=== PATIENT | male | born 1975 | race Caucasian/White ===

== ENCOUNTER 2019-05-01 05:59 | Day surgery (SDC) | payer OTHER ==
[~2019-05-01] VITALS: Ht 177.8 cm; Wt 89.8 kg
[2019-05-01] VITALS (10 sets, daily range): BP systolic 119–150; BP diastolic 71–110
[~2019-05-01 05:59] MED LIST: NO HOME MEDS; cefazolin/dext.iso 2gm/100ml 100 ML IV ONE; famotidine 20mg tablet PO ONE; ringers solution, lacted 1,000 ML IV SCH
[2019-05-01] MEDS ORDERED: BUPIVAcaine/PF 2.5 mg/ml (0.25%) 30ml vial ONE (06:45)
[2019-05-01] MEDS ORDERED: LIDOcaine 1% 30ml preserv. free vial ONE (06:45)
[2019-05-01] MEDS ORDERED: LIDOcaine 1% (10mg/ml) 2ml vial ONE (06:45)
[2019-05-01 07:30] LABS: BASOPHILS % (AUTO) 0.7 % (0-1); EOSINOPHILS # (AUTO) 0.1 X10'3 (0-0.9); EOSINOPHILS % (AUTO) 1.7 % (0-6); LYMPHOCYTES # (AUTO) 1.3 X10'3 (1.1-4.8); LYMPHOCYTES % (AUTO) 21.1 % (21-51); MEAN CORPUSCULAR HEMOGLOBIN 28.7 PG (27.0-31.0); MEAN CORPUSCULAR HGB CONC 33.8 g/dL (33.0-36.5); MEAN PLATELET VOLUME 7.8 FL (7.4-10.4); MONOCYTES # (AUTO) 0.3 X10'3 (0-0.9); MONOCYTES % (AUTO) 4.7 % (2-12); NEUTROPHILS # (AUTO) 4.4 X10'3 (1.8-7.7); NEUTROPHILS % (AUTO) 71.8 % (42-75); PRE OP HEMATOCRIT 49.5 % (42.0-52.0); PRE OP HEMOGLOBIN 16.7 g/dL (14.0-17.9); PRE OP PLATELET COUNT 244 X10'3 (140-440); RED BLOOD COUNT 5.82 X10'6 (4.70-6.10); RED CELL DISTRIBUTION WIDTH 14.1 % (11.5-14.5)
[2019-05-01 07:38] LABS: ALBUMIN 4.5 G/DL (3.4-5.0); ALBUMIN/GLOBULIN RATIO 1.3 (1.1-1.5); ALKALINE PHOSPHATASE 78 IU/L (46-116); BLOOD UREA NITROGEN 17 MG/DL (7-18); CALCIUM 9.3 MG/DL (8.5-10.1); CHLORIDE 107 MMOL/L (99-107); CREATININE 1.13 MG/DL (0.60-1.10); PRE OP ALT 33 U/L (30-65); PRE OP ANION GAP 9 (8-16); PRE OP BILIRUB, TOTAL 0.5 MG/DL (0.0-1.0); PRE OP GLUCOSE 104 MG/DL (70-104); PRE OP SODIUM 144 MMOL/L (135-145); TOTAL CARBON DIOXIDE 28.1 MMOL/L (24-32); TOTAL PROTEIN 7.9 G/DL (6.4-8.2); eGFR 71 ML/MIN
[2019-05-01 07:40] LABS: PRE OP AST 28 U/L (10-37); PRE OP POTASSIUM 4.9 MMOL/L (3.4-5.1)
[2019-05-01] MEDS ORDERED: midazolam 2 mg/2 ml injection ONE (08:31)
[2019-05-01] MEDS ORDERED: fentaNYL/PF 50MCG/1 ML 2ML syringe ONE ×2 (08:31→09:13)
[2019-05-01] MEDS ORDERED: ringers solution, lacted 1,000 ML IV SCH (09:40)
[2019-05-01] MEDS ORDERED: proCHLORperazine 10 MG/2 ml inj IV PRN (09:40)
[2019-05-01] MEDS ORDERED: ondansetron/PF 4mg/2ml inj IV PRN (09:40)
[2019-05-01] MEDS ORDERED: meperidine/PF 25mg/ml syringe IV PRN ×3 (09:40)
[2019-05-01] MEDS ORDERED: morphine 4 MG/ML inj SYRINge IV PRN (09:40)
[2019-05-01] MEDS ORDERED: morphine 2 MG/ML inj. syringe IV PRN (09:40)
--- NOTE | 2019-05-01 10:21 | NUR ---
Received from OR via carolyn, accompanied by Anesthesiologist DR ROSAS and report given by Anesthesiologist. PT DROWSY, NO S/S OF DISTRESS/DISCOMFORT. ABDOMEN W/3 LAP SITES W/BANDAIDS CDI. Addendum: 05/01/19 at 1121 by Brianna Machado RN Amended: Links added.
[2019-05-01] MEDS ORDERED: labetalol 20mg/4ml (5mg/ml) syringe IV ONE (10:26)
[2019-05-01] MEDS ORDERED: rocuronium 10mg/ml inj IV ONE (10:56)
[2019-05-01] MEDS ORDERED: neostigmine methylsulfate 1 MG/ML 10ml vial ONE (10:56)
[2019-05-01] MEDS ORDERED: glycopyrrolate 0.2mg/ml inj ONE (10:56)
[2019-05-01] MEDS ORDERED: dexamethasone sod phosphate 4mg/ml inj. ONE (10:56)
[2019-05-01] MEDS ORDERED: ondansetron/PF 4mg/2ml inj ONE (10:56)
[2019-05-01] MEDS ORDERED: propofol inj 20 ML IV ONE (10:56)
[2019-05-01] MEDS ORDERED: LIDOcaine 2% (20mg/ml) 5ml vial ONE (10:56)
[2019-05-01] MEDS ORDERED: HYDROcodone/acetaminophen 10/325mg tab PO PRN (11:00)
[2019-05-01] MEDS ORDERED: HYDROcodone/acetaminophen 5mg/325mg tablet PO PRN (11:00)
--- NOTE | 2019-05-01 11:40 | NUR ---
RECEIVED VIA GURNEY FROM PACU. PT AWAKE. VSS. ABD BANDAIDS CDI. ABD SOFT/NONDISTENDED. C/O 06/21 ABD DISCOMFORT, WAS MEDICATED IV IN PACU PRIOR TO TRANSFER. IV PATENT #20 TO LEFT FA WITH LR @ 100MLS/HR. PRESENT. ASSIST PT TO STAND AT BEDSIDE. UNABLE TO VOID. PO FLUIDS AND SNACK GIVEN.
--- NOTE | 2019-05-01 11:41 | NUR ---
PT SENT BACK TO [facility] ROOM 246A, RECEIVING WILLIE FRANCE GIVEN REPORT, NOTIFIED OF TRANSFER. Addendum: 05/01/19 at 1235 by Brianna Machado RN Amended: Links added.
--- NOTE | 2019-05-01 12:40 | NUR ---
VS REMAIN STABLE. SONIA PO WELL. HAS BEEN UP TO VOID WITHOUT SUCCESS. WAS MEDICATED WITH PO PAIN MEDICATION WITH ADEQUATE PAIN RELIEF STATED.
--- NOTE | 2019-05-01 14:30 | NUR ---
VOIDED MODERATE AMOUNT PER BRP. BLADDER SCAN WITH <30MLS RESIDUAL NOTED. PT STATES ADEQUATE PAIN RELIEF AND READINESS TO GO HOME. DC INSTRUCTIONS REVIEWED WITH PT AND WHO VERBALIZE UNDERSTANDING. IV DC'D WITH CANNULA INTACT AND DSG APPLIED. DC VIA WC WITH ALL PERSONAL BELONGINGS TO PVT AUTO WITH TO RECEIVE PT.
== END 2019-05-01 14:30 | disposition home or self-care (01) ==
LOC: PAS 05:59
PROVIDERS: ATTEND Surgery
DX: K40.20 Bilateral inguinal hernia, without obstruction or gangrene, not specified as recurrent (principal); Z79.899 Other long term (current) drug therapy
CPT/HCPCS: 36415; 49650; 80053; 85025; 93005; C1781; J1100; J2001; J2175; J2250; J2405; J2704; J2710; J3010; J3490; J7120; S2900; A4215; A4618